=== PATIENT | male | born 1935 | race Caucasian/White ===

== ENCOUNTER 2019-10-04 11:22 | Inpatient (IN) | payer OTHER ==
[~2019-10-04] VITALS: Ht 172.7 cm; Wt 87.2 kg
[~2019-10-04 11:22] MED LIST: ASPI81CH43 PO; ATOR20TA50 PO; CARB25TA3 PO; FURO20TA3 PO; LOSA-39 PO; OMEP20TA PO; TERA1CAP33 PO
[2019-10-04 11:59] LABS: Basophils # (auto) 0 10 ^3/uL (0-0.2); Basophils % (auto) 0.7 % (0.0-2.0); Eosinophils # (auto) 0.1 10 ^3/uL (0-0.8); Eosinophils % (auto) 1.1 % (0.0-7.0); Hematocrit 44.8 % (41.0-53.0); Hemoglobin 14.9 g/dL (13.5-17.5); Lymphocytes # (auto) 0.9 10 ^3/uL (0.4-5.4); Lymphocytes % (auto) 14.5 % (10.0-50.0); Mean Corpuscular Hemoglobin 30.5 pg (28.0-32.0); Mean Corpuscular Hgb Conc. 33.3 g/dL (32.0-36.0); Mean Corpuscular Volume 91.8 fL (80.0-100.0); Monocytes # (auto) 0.5 10 ^3/uL (0-1.3); Monocytes % (auto) 8.5 % (0.0-12.0); Neutrophils # (auto) 4.6 10 ^3/uL (1.6-8.6); Neutrophils % (auto) 75.2 % (37.0-80.0); Nucleated Red Blood Cells % 0.1 %; Platelet Count (auto) 172 10^3/uL (140-450); Red Blood Cells 4.88 10^6/uL (4.5-5.90); Red Cell Distribution Width 14.5 % (11.8-14.3); White Blood Cell 6.1 10^3/uL (4.4-10.8)
[2019-10-04 12:13] LABS: Albumin 3.5 g/dL (3.4-5.0); Anion Gap 3 (5-15); Blood Alcohol < 3.0 mg/dL (0-5); Blood Urea Nitrogen 22 mg/dL (7-18); Calcium 8.7 mg/dL (8.5-10.1); Carbon Dioxide 28 mmol/L (21-32); Chloride 103 mmol/L (98-107); Glucose 136 mg/dL (74-106); INR 1.12 (0.9-1.15); Magnesium 2.4 mg/dL (1.6-2.6); Partial Thromboplastin Time 30.2 sec (23.0-31.2); Potassium 4.4 mmol/L (3.5-5.1); Sodium 134 mmol/L (136-145)
[2019-10-04 12:19] LABS: Alanine Aminotransferase 13 U/L (16-61); Alkaline Phosphatase 65 U/L (45-117); Aspartate Aminotransferase 15 U/L (15-37); BUN/Creatinine Ratio 13.2; GFR African American 51 mL/min; GFR Non-African American 42 mL/min; Total Protein 6.5 g/dL (6.4-8.2)
[2019-10-04] MEDS ORDERED: LORazepam 0.5 MG TAB PO PRN (14:15)
[2019-10-04] MEDS ORDERED: NITROGLYCERIN 0.4 MG SL TAB SL PRN (14:15)
[2019-10-04] MEDS: SODIUM CHLORIDE 0.9% 1,000 ML IV SCH (14:15)
[2019-10-04] MEDS ORDERED: MORPHINE SULF INJ 2 MG/ML SYRINGE 1ML IV PRN ×2 (14:15)
[2019-10-04] MEDS ORDERED: hydrALAZINE HCL 20 MG/ML VL IV PRN (14:15)
[2019-10-04] MEDS ORDERED: DOCUSATE CALCIUM 240 MG CAP PO PRN (14:15)
[2019-10-04] MEDS ORDERED: ACETAMINOPHEN 500 MG TAB PO PRN (14:15)
[2019-10-04 14:41] LABS: Urine Bacteria NONE SEEN /hpf (None Seen); Urine Blood Negative /uL (Negative); Urine Mucus FEW (None Seen); Urine Specific Gravity 1.011 (1.001-1.035); Urine WBC <1 /hpf (0 - 3)
[2019-10-04] MEDS ORDERED: ASPI-231 PO (15:24)
[2019-10-04] MEDS ORDERED: TERA2CAP45 PO (15:24)
[2019-10-04] MEDS ORDERED: CHOL100083 PO (15:24)
[2019-10-04 16:35] VITALS: BP 172/85
--- NOTE | 2019-10-04 16:35 | NUR ---
Telemetry admit from ER MITCH RAMIREZJOSE A admitted to Telemetry unit after SBAR received. Patient oriented to Elizabeth Ellis, primary RN, unit, room, bed, and unit policies regarding patient care and visiting hours. Patient now on continuous telemetry monitoring, tele box # 67 and telemetry reading on arrival to unit is sinus rhythm at 64 with PAC, PVC, and 1st degree heart block. Patient at room air, weighed by bedscale and encouraged to call if they need something, bed alarm on. All questions and concerns addressed, patient verbalized understanding.
[2019-10-04 17:00] VITALS: BP 172/85
[2019-10-04] MEDS ORDERED: CARB25TA75 PO (17:14)
[2019-10-04 17:34] VITALS: BP 150/81
[2019-10-04] MEDS ORDERED: DEXTROSE (50%) 50ML SYRG IV PRN (19:15)
--- NOTE | 2019-10-04 19:30 | NUR ---
Opening Shift Note Assumed care of patient, awake and alert. A&Ox4. Patient lying in bed. No S/S of distress/SOB or pain. Safety measures maintained by keeping the bed locked in lowest position, 2 side rails up, personal items and call light within reach. Instructed on POC and to call for assist PRN, will continue to monitor for changes Q1hr and PRN.
[2019-10-04 22:00] VITALS: BP 116/56
[2019-10-04] MEDS: InsuLIN REG 1unit/0.01ml Soln (100units/ml) SC SCH (22:00)
[2019-10-04] MEDS: ACCU-CHEK COMFORT CURVE STRIP VI SCH (22:03)
[2019-10-05 05:00] VITALS: BP 101/78
[2019-10-05] MEDS: InsuLIN REG 1unit/0.01ml Soln (100units/ml) SC SCH ×4 (06:17→21:31)
[2019-10-05] MEDS: ACCU-CHEK COMFORT CURVE STRIP VI SCH ×4 (06:17→21:28)
[2019-10-05] MEDS: SODIUM CHLORIDE 0.9% 1,000 ML IV SCH ×2 (06:49→23:39)
[2019-10-05 07:19] LABS: Basophils # (auto) 0 10 ^3/uL (0-0.2); Basophils % (auto) 0.5 % (0.0-2.0); Eosinophils # (auto) 0.1 10 ^3/uL (0-0.8); Eosinophils % (auto) 1.8 % (0.0-7.0); Hematocrit 44.9 % (41.0-53.0); Hemoglobin 14.9 g/dL (13.5-17.5); Lymphocytes # (auto) 1.2 10 ^3/uL (0.4-5.4); Lymphocytes % (auto) 19.8 % (10.0-50.0); Mean Corpuscular Hemoglobin 30.4 pg (28.0-32.0); Mean Corpuscular Hgb Conc. 33.1 g/dL (32.0-36.0); Mean Corpuscular Volume 91.9 fL (80.0-100.0); Monocytes # (auto) 0.6 10 ^3/uL (0-1.3); Monocytes % (auto) 9.6 % (0.0-12.0); Neutrophils % (auto) 68.3 % (37.0-80.0); Nucleated Red Blood Cells % 0.1 %; Platelet Count (auto) 168 10^3/uL (140-450); Red Blood Cells 4.89 10^6/uL (4.5-5.90); Red Cell Distribution Width 14.6 % (11.8-14.3); White Blood Cell 5.9 10^3/uL (4.4-10.8)
[2019-10-05 07:27] LABS: Albumin 3.4 g/dL (3.4-5.0); BUN/Creatinine Ratio 13.7; Bilirubin, Total 1.3 mg/dL (0.2-1.0); Calcium 8.5 mg/dL (8.5-10.1); Magnesium 2.2 mg/dL (1.6-2.6); Phosphorus 2.7 mg/dL (2.5-4.90); Total Protein 6.2 g/dL (6.4-8.2)
--- NOTE | 2019-10-05 07:30 | NUR ---
Opening Shift Note Assumed care of patient, awake and alert. No S/S of distress/SOB or pain. Instructed on POC and to call for assist PRN, will continue to monitor for changes Q1hr and PRN. Bed is locked and in lowest position. Call light within reach.
[2019-10-05 08:00] VITALS: BP 117/64
[2019-10-05 09:00] VITALS: BP 117/64
[2019-10-05] MEDS: PANTOPRAZOLE 40 MG/10 ML VIAL INJ IV SCH (09:46)
[2019-10-05] MEDS: ENOXAPARIN SOD 30 MG/0.3 ML SYRINGE SC SCH (09:47)
[2019-10-05 13:00] VITALS: BP 128/69
--- NOTE | 2019-10-05 13:37 | NUR ---
ss consult Per ss consult advanced directive information. Patient has been provided advanced directive by bedside nurse. Addendum: 10/05/19 at 1338 by Grace HUITRON Amended: Links added.
--- NOTE | 2019-10-05 14:59 | NUR ---
Contacted [facility] @ [phone] and informed about the transfer request for per Dr. Bajwa. Per Stephnaie, she informed me that I fax over latest clinicals and transfer order and they will work on transfer. She also informed me that [facility] is already working on securing the bed and might happen over this weekend as they dont have beds today. She has info to reach out to the floor to facilitate this transfer if this happens over the weekend. I faxed over clinicals for today along with the transfer order and scanned into [facility]. 10/04 @ 2.58pm Addendum: 10/05/19 at 1509 by MICHAEL HUITRON Stephanie is also aware that she can reachout to the optimization analyst CM/SW for assistance
--- NOTE | 2019-10-05 15:00 | NUR ---
SANDRA MORAN SWAB COLLECTED AND WALKED TO LAB. WILL AWAIT RESULTS.
[2019-10-05 17:00] VITALS: BP 155/83
--- NOTE | 2019-10-05 19:35 | NUR ---
Opening Shift Note Assumed care of patient, awake and alert. A&Ox4. Patient laying in bed. Patient has periods of confusion. No S/S of distress/SOB or pain. Safety measures maintained by keeping the bed locked in lowest position, 2 side rails up, personal items and call light within reach. Instructed on POC and to call for assist PRN, will continue to monitor for changes Q1hr and PRN.
--- NOTE | 2019-10-05 21:05 | NUR ---
In House COVID swab collected and walked to lab. Will await results.
[2019-10-05 21:34] VITALS: BP 142/76
[2019-10-06 05:00] VITALS: BP 134/63
[2019-10-06] MEDS: InsuLIN REG 1unit/0.01ml Soln (100units/ml) SC SCH ×4 (06:52→22:00)
[2019-10-06] MEDS: ACCU-CHEK COMFORT CURVE STRIP VI SCH ×4 (06:52→22:49)
--- NOTE | 2019-10-06 07:30 | NUR ---
Opening Shift Note Assumed care of patient, awake and alert. No S/S of distress/SOB or pain. Instructed on POC and to call for assist PRN, will continue to monitor for changes Q1hr and PRN. Bed is locked and in lowest position. Call light within reach. Sitter at bedside due to safety.
[2019-10-06 09:03] VITALS: BP 153/83
[2019-10-06] MEDS: ENOXAPARIN SOD 30 MG/0.3 ML SYRINGE SC SCH (09:59)
[2019-10-06] MEDS: PANTOPRAZOLE 40 MG/10 ML VIAL INJ IV SCH (09:59)
--- NOTE | 2019-10-06 12:13 | NUR ---
Contacted by [facility] loan review manager, Clarissa, and it has been arranged for pt to be picked up by [facility] at 6:45am for the pacemaker procedure at [facility] at 7:30am. Pt's stay is authorized until his transfer on Tuesday per Clarissa. Charge nurse also notified by Clarissa.
[2019-10-06] MEDS: CARBIDOPA W LEVODOPA 25/100mg TABLET PO SCH ×3 (12:16→21:50)
[2019-10-06 13:00] VITALS: BP 134/69
[2019-10-06 17:15] VITALS: BP 119/66
--- NOTE | 2019-10-06 19:30 | NUR ---
Opening Shift Note Assumed care of patient, awake and alert. A&Ox4. No S/S of distress/SOB or pain. Safety measures maintained by keeping the bed locked in lowest position, 2 side rails up, personal items and call light within reach. Bed alarm in place. Walker at bedside. Instructed on POC and to call for assist PRN, will continue to monitor for changes Q1hr and PRN.
--- NOTE | 2019-10-06 20:45 | NUR ---
MD Solomon at bedside.
[2019-10-06] MEDS: ATORVASTATIN 20 MG TAB PO SCH (21:50)
[2019-10-06 22:00] VITALS: BP 127/80
[2019-10-07] VITALS (7 sets, daily range): BP systolic 126–168; BP diastolic 68–84
[2019-10-07] MEDS: CARBIDOPA W LEVODOPA 25/100mg TABLET PO SCH ×4 (06:10→21:59)
[2019-10-07] MEDS: InsuLIN REG 1unit/0.01ml Soln (100units/ml) SC SCH ×4 (06:17→21:59)
[2019-10-07] MEDS: ACCU-CHEK COMFORT CURVE STRIP VI SCH ×4 (06:17→21:59)
[2019-10-07 06:19] LABS: Basophils # (auto) 0 10 ^3/uL (0-0.2); Basophils % (auto) 0.6 % (0.0-2.0); Eosinophils # (auto) 0.1 10 ^3/uL (0-0.8); Eosinophils % (auto) 1.9 % (0.0-7.0); Hematocrit 48.6 % (41.0-53.0); Hemoglobin 16.2 g/dL (13.5-17.5); Lymphocytes # (auto) 1.1 10 ^3/uL (0.4-5.4); Lymphocytes % (auto) 16.5 % (10.0-50.0); Mean Corpuscular Hemoglobin 31.5 pg (28.0-32.0); Mean Corpuscular Hgb Conc. 33.4 g/dL (32.0-36.0); Mean Corpuscular Volume 94.3 fL (80.0-100.0); Monocytes # (auto) 0.6 10 ^3/uL (0-1.3); Monocytes % (auto) 9.8 % (0.0-12.0); Neutrophils # (auto) 4.6 10 ^3/uL (1.6-8.6); Neutrophils % (auto) 71.2 % (37.0-80.0); Nucleated Red Blood Cells % 0.3 %; Platelet Count (auto) 143 10^3/uL (140-450); Red Blood Cells 5.15 10^6/uL (4.5-5.90); Red Cell Distribution Width 14.9 % (11.8-14.3); White Blood Cell 6.4 10^3/uL (4.4-10.8)
[2019-10-07 08:55] LABS: BUN/Creatinine Ratio 18.3; Calcium 8.4 mg/dL (8.5-10.1); Potassium 4.4 mmol/L (3.5-5.1)
[2019-10-07] MEDS: PANTOPRAZOLE 40 MG/10 ML VIAL INJ IV SCH (09:04)
[2019-10-07] MEDS ORDERED: ASPirin-EC 81 mg tab PO SCH (10:00)
--- NOTE | 2019-10-07 11:53 | NUR ---
EEG-ELECTROENCEPHALOGRAM COMPLETED ON 10/07/2019 @ 10:09.
--- NOTE | 2019-10-07 14:08 | NUR ---
Nutrition Assessment Notes Please refer to link for full assessment notes. Est Energy needs: 4027-3374 kcals (17-20 kcal/kgBW) Est Protein needs: 86-95 gms/day (1.0-1.1 gm/kgBW) Will continue to monitor and reassess prn. Addendum: 10/07/19 at [address] Amended: Links added. Addendum: 10/07/19 at [address] Recommendation: Consider a CCHO 60g diet
--- NOTE | 2019-10-07 19:30 | NUR ---
Opening Shift Note Assumed care of patient, awake and alert. No S/S of distress/SOB or pain. Bed alarm turned on and patient encouraged to call if he needs to get up. Instructed on POC and to call for assist PRN, will continue to monitor for changes Q1hr and PRN.
[2019-10-07] MEDS: ATORVASTATIN 20 MG TAB PO SCH (21:58)
[2019-10-08 05:00] VITALS: BP 158/79
[2019-10-08] MEDS: InsuLIN REG 1unit/0.01ml Soln (100units/ml) SC SCH (07:00)
[2019-10-08] MEDS: CARBIDOPA W LEVODOPA 25/100mg TABLET PO SCH (07:24)
[2019-10-08] MEDS: ACCU-CHEK COMFORT CURVE STRIP VI SCH (07:24)
--- NOTE | 2019-10-08 07:31 | NUR ---
Pt being trans to another hosp Order obtained for transfer of JOSE A MEYER II to [facility]. Report called/given to [place]. Report given to EMS transport team. Medication reconciliation form completed and copy given to patient. Transported via [facility] along with copied chart and imaging films/disk and all personal belongings. No distress noted on time of departure. Iv left in place.
[2019-10-08 08:55] VITALS: BP 87/55
[2019-10-08 10:10] LABS: Folate (Folic Acid) 15.38 ng/mL (5.38-24)
== END 2019-10-08 07:31 | disposition short-term general hospital (02) | DRG 308 ==
LOC: ER 11:22 → EDBD 11:22 → TELE 11:23 → TELE-WESTW 16:19
PROVIDERS: ATTEND Specialist
DX: I49.5 Sick sinus syndrome (principal); G93.41 Metabolic encephalopathy; E87.1 Hypo-osmolality and hyponatremia; I13.0 Hypertensive heart and chronic kidney disease with heart failure and stage 1 through stage 4 chronic kidney disease, or unspecified chronic kidney disease; E86.0 Dehydration; I50.9 Heart failure, unspecified; G20 Parkinson's disease; I25.10 Atherosclerotic heart disease of native coronary artery without angina pectoris; N18.9 Chronic kidney disease, unspecified; E11.22 Type 2 diabetes mellitus with diabetic chronic kidney disease; Z20.828 Contact with and (suspected) exposure to other viral communicable diseases; F17.200 Nicotine dependence, unspecified, uncomplicated; I65.21 Occlusion and stenosis of right carotid artery; K59.00 Constipation, unspecified; N40.0 Benign prostatic hyperplasia without lower urinary tract symptoms; W18.39XA Other fall on same level, initial encounter; Z95.1 Presence of aortocoronary bypass graft; Z79.82 Long term (current) use of aspirin; I25.2 Old myocardial infarction; Z79.899 Other long term (current) drug therapy; Z82.3 Family history of stroke; Z86.73 Personal history of transient ischemic attack (TIA), and cerebral infarction without residual deficits; Z95.0 Presence of cardiac pacemaker; Z79.84 Long term (current) use of oral hypoglycemic drugs; Y93.89 Activity, other specified; Y92.89 Other specified places as the place of occurrence of the external cause; Y99.8 Other external cause status; Z88.0 Allergy status to penicillin
CPT/HCPCS: 36415; 70450; 70551; 71045; 72170; 80048; 80053; 80061; 80320; 81001; 82607; 82746; 82962; 83036; 83735; 83880; 84100; 84443; 84484; 85025; 85610; 85730; 87426; 93005; 93306; 93886; 95819; 97163; C9113; G0378; J1815

== ENCOUNTER 2022-12-14 15:30 | Inpatient (IN) | payer OTHER ==
[~2022-12-14] VITALS: Ht 165.1 cm; Wt 93.6 kg
[~2022-12-14 15:30] MED LIST changes: +ASPI1TAB20 PO; +CARB-112 PO; +CARB-118 PO; -CARB25TA3 PO; +CHOL100083 PO; -LOSA-39 PO; +LOSA100T58 PO; +TERA2CAP45 PO
[2022-12-14 16:00] VITALS: PULSE 86; RESP 20; O2SAT 96
[2022-12-14] MEDS ORDERED: ALBUTEROL MEDNEB 2.5 mg/3ml NEB NEB ONE (17:00)
[2022-12-14] MEDS ORDERED: IPRATROPIUM BROM 0.5 MG/2.5ML INH SOL NEB ONE (17:00)
[2022-12-14] MEDS ORDERED: cefTRIAXone 1GM/50ML D5W 50 ML IV ONE (17:00)
[2022-12-14] MEDS ORDERED: VANCOMYCIN PER PHARMACY 0 MG IV SCH (17:00)
[2022-12-14] MEDS ORDERED: ONDANSETRON HCL 4 MG/2 ML VIAL IV ONE (17:00)
[2022-12-14 17:28] LABS: Base Excess -4.3 mmol/L (-2.0-2.0)
[2022-12-14 17:31] LABS: Basophils # (auto) 0 10 ^3/uL (0-0.2); Basophils % (auto) 0.1 % (0.0-2.0); Eosinophils # (auto) 0 10 ^3/uL (0-0.8); Eosinophils % (auto) 0.1 % (0.0-7.0); Hematocrit 41.6 % (41.0-53.0); Lymphocytes # (auto) 0.7 10 ^3/uL (0.4-5.4); Lymphocytes % (auto) 3.5 % (10.0-50.0); Mean Corpuscular Hemoglobin 28.8 pg (28.0-32.0); Mean Corpuscular Hgb Conc. 31.3 g/dL (32.0-36.0); Monocytes # (auto) 0.7 10 ^3/uL (0-1.3); Monocytes % (auto) 3.4 % (0.0-12.0); Neutrophils # (auto) 17.9 10 ^3/uL (1.6-8.6); Neutrophils % (auto) 92.9 % (37.0-80.0); Red Blood Cells 4.52 10^6/uL (4.5-5.90); Red Cell Distribution Width 18.2 % (11.8-14.3); White Blood Cell 19.3 10^3/uL (4.4-10.8)
[2022-12-14] MEDS ORDERED: VANCOMYCIN 1GM/250ML 250 ML IV ONE (18:00)
[2022-12-14 18:19] LABS: Albumin 2.7 g/dL (3.2-4.8); Alkaline Phosphatase 71 U/L (46-116); Anion Gap 56 (5-15); Aspartate Aminotransferase 11 U/L (13-40); BUN/Creatinine Ratio 23.3 (10.0-20.0); Bilirubin, Total 1.1 mg/dL (0.2-1.0); Blood Urea Nitrogen 21 mg/dL (9-23); Calcium 6.9 mg/dL (8.7-10.4); Carbon Dioxide 13 mmol/L (20-30); Chloride 78 mmol/L (98-107); Glucose 150 mg/dL (74-106); Lipase 27 U/L (12-53); Magnesium 2.4 mg/dL (1.6-2.6); Potassium 4.3 mmol/L (3.5-5.1); Sodium 147 mmol/L (136-145); Total Protein 5.1 g/dL (5.7-8.2)
[2022-12-14 18:33] LABS: Alanine Aminotransferase < 9 U/L (7-40)
[2022-12-14 19:02] LABS: INR 1.33 (0.9-1.15); Lactic Acid w/Reflex 2.9 mmol/L (0.4-2.0); Partial Thromboplastin Time 36.8 SEC (24.5-34.5); Prothrombin Time 13.7 sec (9.3-11.8)
[2022-12-14 20:40] VITALS: PULSE 91; RESP 23; O2SAT 99
[2022-12-14] MEDS ORDERED: NITROGLYCERIN 0.4 MG SL TAB SL PRN ×2 (21:45→22:00)
[2022-12-14] MEDS ORDERED: MORPHINE SULFATE INJ 2 MG/ml SYRG IV PRN ×2 (21:45→22:00)
[2022-12-14] MEDS ORDERED: ALBUMIN 5% 250 ML IV ONE ×2 (21:45→22:43)
[2022-12-14] MEDS ORDERED: DEXTROSE (50%) 50ML SYRG IV PRN ×2 (21:45→22:00)
[2022-12-14] MEDS ORDERED: ONDANSETRON HCL 4 MG/2 ML VIAL IV PRN ×2 (21:45→22:00)
[2022-12-14] MEDS ORDERED: ATORVASTATIN 20 MG TAB PO SCH (22:00)
[2022-12-14] MEDS ORDERED: CARBIDOPA W LEVODOPA 25/100mg TABLET PO SCH (22:00)
[2022-12-14] MEDS ORDERED: APIXABAN 2.5 MG TAB PO SCH ×2 (22:00→22:15)
[2022-12-15] MEDS ORDERED: ACCU-CHEK COMFORT CURVE STRIP VI SCH
[2022-12-15] MEDS ORDERED: InsuLIN REG 1unit/0.01ml Soln (100units/ml) SC SCH
[2022-12-15] MEDS: ACCU-CHEK COMFORT CURVE STRIP VI SCH ×5 (00:24→21:37)
[2022-12-15] MEDS: InsuLIN REG 1unit/0.01ml Soln (100units/ml) SC SCH ×5 (00:24→21:36)
[2022-12-15 03:32] LABS: Rapid Influenza A Negative (Negative); Rapid Influenza B Negative (Negative)
[2022-12-15 03:33] LABS: COVID19 ANTIGEN SOFIA FIA NEGATIVE (NEGATIVE)
[2022-12-15] MEDS ORDERED: VANCOMYCIN 1GM/250ML 250 ML IV SCH (04:00)
[2022-12-15] MEDS ORDERED: VANCOMYCIN 1GM/250ML 250 ML IV ONE (04:24)
[2022-12-15 06:12] LABS: Basophils # (auto) 0 10 ^3/uL (0-0.2); Basophils % (auto) 0.1 % (0.0-2.0); Eosinophils # (auto) 0 10 ^3/uL (0-0.8); Lymphocytes # (auto) 0.6 10 ^3/uL (0.4-5.4); Monocytes # (auto) 0.8 10 ^3/uL (0-1.3)
[2022-12-15 06:18] LABS: Hematocrit 38.8 % (41.0-53.0); Hemoglobin 12.2 g/dL (13.5-17.5); Mean Corpuscular Hemoglobin 28.7 pg (28.0-32.0); Mean Corpuscular Hgb Conc. 31.4 g/dL (32.0-36.0); Mean Corpuscular Volume 91.5 fL (80.0-100.0); Neutrophils # (auto) 19.4 10 ^3/uL (1.6-8.6); Neutrophils % (auto) 92.9 % (37.0-80.0); Red Blood Cells 4.24 10^6/uL (4.5-5.90); White Blood Cell 20.8 10^3/uL (4.4-10.8)
[2022-12-15 06:21] LABS: Albumin 3.2 g/dL (3.2-4.8); Alkaline Phosphatase 84 U/L (46-116); Anion Gap 9 (5-15); Aspartate Aminotransferase 20 U/L (13-40); BUN/Creatinine Ratio 17.4 (10.0-20.0); Bilirubin, Total 1.2 mg/dL (0.2-1.0); Blood Urea Nitrogen 21 mg/dL (9-23); Calcium 8.7 mg/dL (8.5-10.1); Carbon Dioxide 19 mmol/L (20-30); Chloride 99 mmol/L (98-107); Glucose 168 mg/dL (74-106); Potassium 5.3 mmol/L (3.5-5.1)
[2022-12-15 06:35] LABS: Alanine Aminotransferase < 9 U/L (7-40); Sodium 127 mmol/L (136-145)
[2022-12-15] MEDS: CARBIDOPA W LEVODOPA 25/100mg TABLET PO SCH ×4 (07:00→21:36)
[2022-12-15 08:00] VITALS: PULSE 85; RESP 30; O2SAT 93
[2022-12-15] MEDS ORDERED: cefTRIAXone 1GM/50ML D5W 50 ML IV SCH (09:00)
[2022-12-15] MEDS ORDERED: FUROSEMIDE 40 MG TAB PO SCH ×2 (10:00)
[2022-12-15 10:24] LABS: Urine Bacteria NONE SEEN /hpf (None Seen); Urine Blood 3+ /uL (Negative); Urine Clarity CLOUDY (Clear); Urine Color Red (Yellow); Urine Mucus FEW (None Seen); Urine Protein, UAD 3+ (Negative); Urine Specific Gravity 1.019 (1.001-1.035); Urine Urobilinogen Normal (Negative); Urine WBC 207 /hpf (0 - 3); Urine WBC Clumps PRESENT /hpf (None Seen); Urine pH 8.5 (5.0-8.0)
[2022-12-15] MEDS: cefTRIAXone 1GM/50ML D5W 50 ML IV SCH (10:41)
[2022-12-15] MEDS ORDERED: FUROSEMIDE 40 MG/4 ML VIAL IV ONE (10:45)
[2022-12-15] MEDS: ENOXAPARIN SOD 40 MG/0.4 ML SYRINGE SC SCH (10:57)
[2022-12-15] MEDS: VANCOMYCIN 1GM/250ML 250 ML IV SCH (15:31)
[2022-12-15] MEDS: TAMSULOSIN HYDROCHLORIDE 0.4 MG CAP PO SCH (17:02)
[2022-12-15] MEDS: FUROSEMIDE 40 MG/4 ML VIAL IV SCH (17:06)
[2022-12-15] MEDS ORDERED: TAMSULOSIN HYDROCHLORIDE 0.4 MG CAP PO SCH (18:00)
[2022-12-15 19:15] VITALS: PULSE 88; RESP 26; O2SAT 98
[2022-12-15] MEDS: ATORVASTATIN 20 MG TAB PO SCH (21:36)
[2022-12-16] MEDS: VANCOMYCIN 1GM/250ML 250 ML IV SCH (01:00)
[2022-12-16 04:55] LABS: Basophils # (auto) 0 10 ^3/uL (0-0.2); Basophils % (auto) 0.2 % (0.0-2.0); Eosinophils # (auto) 0 10 ^3/uL (0-0.8); Eosinophils % (auto) 0.1 % (0.0-7.0); Hematocrit 38.2 % (41.0-53.0); Hemoglobin 12.2 g/dL (13.5-17.5); Lymphocytes # (auto) 0.8 10 ^3/uL (0.4-5.4); Mean Corpuscular Hemoglobin 28.6 pg (28.0-32.0); Mean Corpuscular Hgb Conc. 31.9 g/dL (32.0-36.0); Mean Corpuscular Volume 89.4 fL (80.0-100.0); Monocytes # (auto) 0.7 10 ^3/uL (0-1.3); Monocytes % (auto) 5.4 % (0.0-12.0); Neutrophils # (auto) 12.1 10 ^3/uL (1.6-8.6); Neutrophils % (auto) 88.3 % (37.0-80.0); Red Blood Cells 4.28 10^6/uL (4.5-5.90); Red Cell Distribution Width 18.2 % (11.8-14.3); White Blood Cell 13.8 10^3/uL (4.4-10.8)
[2022-12-16 05:07] LABS: Chloride 101 mmol/L (98-107); Potassium 4.2 mmol/L (3.5-5.1); Sodium 130 mmol/L (136-145)
[2022-12-16 05:08] LABS: Anion Gap 8 (5-15); Carbon Dioxide 21 mmol/L (20-30)
[2022-12-16 05:09] LABS: Calcium 8.6 mg/dL (8.7-10.4)
[2022-12-16 05:13] LABS: BUN/Creatinine Ratio 19.8 (10.0-20.0); Blood Urea Nitrogen 23 mg/dL (9-23); Glucose 99 mg/dL (74-106)
[2022-12-16 05:14] LABS: Magnesium 2.1 mg/dL (1.6-2.6)
[2022-12-16] MEDS: CARBIDOPA W LEVODOPA 25/100mg TABLET PO SCH ×4 (06:00→22:00)
[2022-12-16] MEDS: InsuLIN REG 1unit/0.01ml Soln (100units/ml) SC SCH ×3 (06:00→18:00)
[2022-12-16] MEDS: FUROSEMIDE 40 MG/4 ML VIAL IV SCH ×2 (06:15→17:52)
[2022-12-16] MEDS: ACCU-CHEK COMFORT CURVE STRIP VI SCH ×3 (06:15→18:28)
[2022-12-16] MEDS: cefTRIAXone 1GM/50ML D5W 50 ML IV SCH (09:36)
[2022-12-16] MEDS: ENOXAPARIN SOD 40 MG/0.4 ML SYRINGE SC SCH (10:00)
[2022-12-16 10:48] VITALS: PULSE 80; RESP 22; O2SAT 95
[2022-12-16 13:00] VITALS: BP 124/87; PULSE 85; RESP 18; TEMP 98; O2SAT 100
[2022-12-16] MEDS: TAMSULOSIN HYDROCHLORIDE 0.4 MG CAP PO SCH (16:24)
[2022-12-16 17:00] VITALS: BP 100/63; PULSE 83; RESP 20; TEMP 98.3; O2SAT 93
[2022-12-16] MEDS ORDERED: VANCOMYCIN 500 MG in D5W 5% 100 ML IV ONE (17:00)
[2022-12-16 20:00] VITALS: PULSE 80; RESP 16; RESP 18; O2SAT 97
[2022-12-16] MEDS: ATORVASTATIN 20 MG TAB PO SCH (22:00)
[2022-12-16] MEDS ORDERED: ENOXAPARIN SOD 100 MG/1 ML SYRINGE SC SCH (22:00)
[2022-12-16 22:02] VITALS: BP 115/65; PULSE 79; RESP 19; TEMP 98.2; O2SAT 99
[2022-12-17] VITALS (8 sets, daily range): BP systolic 105–123; BP diastolic 51–80; PULSE 69–99; RESP 17–20; TEMP 98.2–98.7; O2SAT 95–98
[2022-12-17] MEDS: CARBIDOPA W LEVODOPA 25/100mg TABLET PO SCH ×4 (06:00→21:07)
[2022-12-17] MEDS: InsuLIN REG 1unit/0.01ml Soln (100units/ml) SC SCH ×4 (06:00→18:00)
[2022-12-17] MEDS: FUROSEMIDE 40 MG/4 ML VIAL IV SCH (06:28)
[2022-12-17] MEDS: ACCU-CHEK COMFORT CURVE STRIP VI SCH ×4 (06:28→18:10)
[2022-12-17 06:36] LABS: Basophils # (auto) 0 10 ^3/uL (0-0.2); Basophils % (auto) 0.5 % (0.0-2.0); Eosinophils # (auto) 0.1 10 ^3/uL (0-0.8); Eosinophils % (auto) 0.6 % (0.0-7.0); Hematocrit 38.6 % (41.0-53.0); Hemoglobin 12.4 g/dL (13.5-17.5); Mean Corpuscular Hemoglobin 28.6 pg (28.0-32.0); Mean Corpuscular Volume 89.3 fL (80.0-100.0); Monocytes # (auto) 0.6 10 ^3/uL (0-1.3); Monocytes % (auto) 7.2 % (0.0-12.0); Neutrophils # (auto) 7.2 10 ^3/uL (1.6-8.6); Neutrophils % (auto) 80.7 % (37.0-80.0); Nucleated Red Blood Cells % 0.1 %; Red Blood Cells 4.33 10^6/uL (4.5-5.90); Red Cell Distribution Width 17.9 % (11.8-14.3)
[2022-12-17 06:51] LABS: Alkaline Phosphatase 75 U/L (46-116); Anion Gap 8 (5-15); Aspartate Aminotransferase 18 U/L (13-40); BUN/Creatinine Ratio 25.9 (10.0-20.0); Bilirubin, Total 0.9 mg/dL (0.2-1.0); Blood Urea Nitrogen 30 mg/dL (9-23); Calcium 8.7 mg/dL (8.7-10.4); Carbon Dioxide 25 mmol/L (20-30); Chloride 102 mmol/L (98-107); Glucose 76 mg/dL (74-106); Magnesium 2.1 mg/dL (1.6-2.6); Potassium 3.7 mmol/L (3.5-5.1); Sodium 135 mmol/L (136-145); Total Protein 5.7 g/dL (5.7-8.2)
[2022-12-17 06:52] LABS: Alanine Aminotransferase < 9 U/L (7-40)
[2022-12-17] MEDS: cefTRIAXone 1GM/50ML D5W 50 ML IV SCH (08:27)
[2022-12-17] MEDS: ENOXAPARIN SOD 120 MG/0.8 ML SYRINGE SC SCH ×2 (09:58→21:05)
[2022-12-17] MEDS: TAMSULOSIN HYDROCHLORIDE 0.4 MG CAP PO SCH (18:00)
[2022-12-17] MEDS: ATORVASTATIN 20 MG TAB PO SCH (21:06)
[2022-12-18] VITALS (7 sets, daily range): BP systolic 103–130; BP diastolic 69–82; PULSE 80–82; RESP 14–20; TEMP 97.2–97.8; O2SAT 98–100
[2022-12-18] MEDS: ACCU-CHEK COMFORT CURVE STRIP VI SCH ×5 (00:13→23:34)
[2022-12-18] MEDS: InsuLIN REG 1unit/0.01ml Soln (100units/ml) SC SCH ×5 (00:18→23:34)
[2022-12-18] MEDS: CARBIDOPA W LEVODOPA 25/100mg TABLET PO SCH ×4 (05:17→21:00)
[2022-12-18 06:06] LABS: PSA Free 0.2 ng/mL; Prostate Specific Antigen 0.7 ng/mL (0.0-4.0)
[2022-12-18 06:08] LABS: Basophils # (auto) 0.1 10 ^3/uL (0-0.2); Basophils % (auto) 0.5 % (0.0-2.0); Eosinophils # (auto) 0.1 10 ^3/uL (0-0.8); Eosinophils % (auto) 0.8 % (0.0-7.0); Hematocrit 40.7 % (41.0-53.0); Hemoglobin 12.4 g/dL (13.5-17.5); Lymphocytes % (auto) 10.6 % (10.0-50.0); Mean Corpuscular Hemoglobin 28.4 pg (28.0-32.0); Mean Corpuscular Hgb Conc. 30.5 g/dL (32.0-36.0); Mean Corpuscular Volume 93.4 fL (80.0-100.0); Monocytes # (auto) 0.8 10 ^3/uL (0-1.3); Monocytes % (auto) 8.2 % (0.0-12.0); Neutrophils # (auto) 7.9 10 ^3/uL (1.6-8.6); Neutrophils % (auto) 79.9 % (37.0-80.0); Nucleated Red Blood Cells % 0.1 %; Red Blood Cells 4.36 10^6/uL (4.5-5.90); White Blood Cell 9.8 10^3/uL (4.4-10.8)
[2022-12-18 06:42] LABS: Anion Gap 9 (5-15); Carbon Dioxide 24 mmol/L (20-30); Chloride 103 mmol/L (98-107); Potassium 3.7 mmol/L (3.5-5.1); Sodium 136 mmol/L (136-145)
[2022-12-18 06:43] LABS: Calcium 8.7 mg/dL (8.7-10.4)
[2022-12-18 06:48] LABS: BUN/Creatinine Ratio 22.7 (10.0-20.0); Blood Urea Nitrogen 29 mg/dL (9-23); Glucose 128 mg/dL (74-106)
[2022-12-18] MEDS ORDERED: VANCOMYCIN 500 MG in D5W 5% 100 ML IV ONE (08:45)
[2022-12-18] MEDS: cefTRIAXone 1GM/50ML D5W 50 ML IV SCH (09:02)
[2022-12-18] MEDS: ENOXAPARIN SOD 120 MG/0.8 ML SYRINGE SC SCH ×2 (09:03→20:59)
[2022-12-18] MEDS: TAMSULOSIN HYDROCHLORIDE 0.4 MG CAP PO SCH (17:39)
[2022-12-18] MEDS: ATORVASTATIN 20 MG TAB PO SCH (20:59)
[2022-12-19] VITALS (7 sets, daily range): BP systolic 110–128; BP diastolic 67–80; PULSE 79–82; RESP 18–24; TEMP 97.3–97.8; O2SAT 95–100
[2022-12-19] MEDS: InsuLIN REG 1unit/0.01ml Soln (100units/ml) SC SCH ×4 (06:00→23:00)
[2022-12-19] MEDS: ACCU-CHEK COMFORT CURVE STRIP VI SCH ×4 (06:10→22:57)
[2022-12-19] MEDS: CARBIDOPA W LEVODOPA 25/100mg TABLET PO SCH ×4 (06:10→21:37)
[2022-12-19] MEDS: ENOXAPARIN SOD 120 MG/0.8 ML SYRINGE SC SCH ×2 (08:47→21:37)
[2022-12-19] MEDS: cefTRIAXone 1GM/50ML D5W 50 ML IV SCH (08:47)
[2022-12-19] MEDS: TAMSULOSIN HYDROCHLORIDE 0.4 MG CAP PO SCH (18:03)
[2022-12-19] MEDS: ATORVASTATIN 20 MG TAB PO SCH (21:37)
[2022-12-20] VITALS (7 sets, daily range): BP systolic 99–116; BP diastolic 66–80; PULSE 80; RESP 18; TEMP 96.7–97.9; O2SAT 97–100
[2022-12-20] MEDS: InsuLIN REG 1unit/0.01ml Soln (100units/ml) SC SCH ×3 (06:00→18:00)
[2022-12-20] MEDS: CARBIDOPA W LEVODOPA 25/100mg TABLET PO SCH ×4 (06:16→21:29)
[2022-12-20] MEDS: ACCU-CHEK COMFORT CURVE STRIP VI SCH ×3 (06:16→18:45)
[2022-12-20] MEDS: ENOXAPARIN SOD 120 MG/0.8 ML SYRINGE SC SCH (10:02)
[2022-12-20] MEDS: cefTRIAXone 1GM/50ML D5W 50 ML IV SCH (10:03)
[2022-12-20] MEDS ORDERED: VANCOMYCIN 1GM/250ML 250 ML IV ONE (11:00)
[2022-12-20] MEDS: FUROSEMIDE 20 MG/2 ML VIAL IV SCH (13:11)
[2022-12-20] MEDS: TAMSULOSIN HYDROCHLORIDE 0.4 MG CAP PO SCH (18:44)
[2022-12-20] MEDS: ATORVASTATIN 20 MG TAB PO SCH (21:29)
[2022-12-20] MEDS: ENOXAPARIN SOD 100 MG/1 ML SYRINGE SC SCH (21:29)
[2022-12-21] VITALS (7 sets, daily range): BP systolic 91–119; BP diastolic 41–74; PULSE 79–80; RESP 17–22; TEMP 97.5–98.9; O2SAT 90–100
[2022-12-21] MEDS: ACCU-CHEK COMFORT CURVE STRIP VI SCH ×4 (00:26→18:03)
[2022-12-21] MEDS: InsuLIN REG 1unit/0.01ml Soln (100units/ml) SC SCH ×4 (00:36→18:00)
[2022-12-21 05:25] LABS: Chloride 101 mmol/L (98-107); Potassium 3.6 mmol/L (3.5-5.1); Sodium 135 mmol/L (136-145)
[2022-12-21 05:26] LABS: Anion Gap 6 (5-15); Calcium 8.4 mg/dL (8.5-10.1); Carbon Dioxide 28 mmol/L (20-30)
[2022-12-21 05:31] LABS: BUN/Creatinine Ratio 20.2 (10.0-20.0); Blood Urea Nitrogen 19 mg/dL (9-23); Glucose 97 mg/dL (74-106)
[2022-12-21] MEDS: CARBIDOPA W LEVODOPA 25/100mg TABLET PO SCH ×4 (05:58→21:56)
[2022-12-21] MEDS: FUROSEMIDE 20 MG/2 ML VIAL IV SCH (10:00)
[2022-12-21] MEDS: cefTRIAXone 1GM/50ML D5W 50 ML IV SCH (10:00)
[2022-12-21] MEDS: ENOXAPARIN SOD 100 MG/1 ML SYRINGE SC SCH ×2 (10:00→21:56)
[2022-12-21] MEDS ORDERED: VANCOMYCIN 1GM/250ML 250 ML IV SCH (12:00)
[2022-12-21] MEDS ORDERED: LIDOCAINE VISCOUS 2% 15ML UD PO ONE (13:15)
[2022-12-21] MEDS ORDERED: MIDAZOLAM HCL 2MG/2ML 2ml VIAL (1mg/ml) IV ONE (13:15)
[2022-12-21] MEDS ORDERED: NALOXONE HCL 0.4 MG/ML VIAL ONE (13:15)
[2022-12-21] MEDS ORDERED: fentaNYL CITRATE 100 MCG/2 ML VL IV ONE (13:15)
[2022-12-21] MEDS ORDERED: FLUMAZENIL 0.1 MG/ML INJ 10ML MDV IV ONE (13:15)
[2022-12-21] MEDS: TAMSULOSIN HYDROCHLORIDE 0.4 MG CAP PO SCH (18:03)
[2022-12-21] MEDS: ATORVASTATIN 20 MG TAB PO SCH (21:56)
[2022-12-22] MEDS: ACCU-CHEK COMFORT CURVE STRIP VI SCH ×4 (00:10→17:44)
[2022-12-22] MEDS: InsuLIN REG 1unit/0.01ml Soln (100units/ml) SC SCH ×4 (00:19→17:44)
[2022-12-22 05:48] VITALS: BP 107/61; PULSE 80; RESP 20; TEMP 97.8; O2SAT 100
[2022-12-22] MEDS: CARBIDOPA W LEVODOPA 25/100mg TABLET PO SCH ×3 (06:16→17:44)
[2022-12-22 08:00] VITALS: BP 109/77; PULSE 80; PULSE 86; RESP 18; RESP 24; TEMP 97.6; O2SAT 97
[2022-12-22] MEDS: cefTRIAXone 1GM/50ML D5W 50 ML IV SCH (09:14)
[2022-12-22] MEDS: ENOXAPARIN SOD 100 MG/1 ML SYRINGE SC SCH (09:14)
[2022-12-22] MEDS: FUROSEMIDE 20 MG/2 ML VIAL IV SCH (09:15)
[2022-12-22] MEDS ORDERED: BACDST PO (11:14)
[2022-12-22] MEDS ORDERED: CLIN300C70 PO (11:14)
[2022-12-22 12:00] VITALS: BP 95/64; PULSE 80; RESP 22; TEMP 97.7; O2SAT 95
[2022-12-22] MEDS ORDERED: SULFAMETHOX W/TRIMETH(800/160MG) DS TAB PO ONE (12:00)
[2022-12-22 16:00] VITALS: BP 96/67; PULSE 80; RESP 22; TEMP 98.1; O2SAT 96
[2022-12-22] MEDS: TAMSULOSIN HYDROCHLORIDE 0.4 MG CAP PO SCH (17:44)
[2022-12-22] MEDS ORDERED: SULFAMETHOX W/TRIMETH(800/160MG) DS TAB PO SCH (22:00)
== END 2022-12-22 18:51 | disposition home health service (06) | DRG 871 ==
LOC: EDBD 15:30 → ER 15:30 → TELE 21:54 → TELE-EAST 12-16 10:48
PROVIDERS: ADMIT Nurse Practitioner; ATTEND Internal Medicine Geriatric Medicine
PROC: B24BZZ4 Ultrasonography of Heart with Aorta, Transesophageal (ICD-10-PCS; principal; 2022-12-21)
DX: A41.9 Sepsis, unspecified organism (principal); E43 Unspecified severe protein-calorie malnutrition; G93.41 Metabolic encephalopathy; J18.9 Pneumonia, unspecified organism; I50.43 Acute on chronic combined systolic (congestive) and diastolic (congestive) heart failure; I21.4 Non-ST elevation (NSTEMI) myocardial infarction; E87.20 Acidosis, unspecified; D68.9 Coagulation defect, unspecified; N39.0 Urinary tract infection, site not specified; E87.1 Hypo-osmolality and hyponatremia; I13.0 Hypertensive heart and chronic kidney disease with heart failure and stage 1 through stage 4 chronic kidney disease, or unspecified chronic kidney disease; I08.1 Rheumatic disorders of both mitral and tricuspid valves; R65.20 Severe sepsis without septic shock; E11.22 Type 2 diabetes mellitus with diabetic chronic kidney disease; G20.A1 Parkinson's disease without dyskinesia, without mention of fluctuations; I48.91 Unspecified atrial fibrillation; N18.30 Chronic kidney disease, stage 3 unspecified; E66.9 Obesity, unspecified; N40.0 Benign prostatic hyperplasia without lower urinary tract symptoms; N47.2 Paraphimosis; Z20.822 Contact with and (suspected) exposure to COVID-19; R32 Unspecified urinary incontinence; E87.5 Hyperkalemia; R31.0 Gross hematuria; I25.10 Atherosclerotic heart disease of native coronary artery without angina pectoris; Z95.1 Presence of aortocoronary bypass graft; Z88.0 Allergy status to penicillin; Z82.3 Family history of stroke; Z90.49 Acquired absence of other specified parts of digestive tract; Z79.84 Long term (current) use of oral hypoglycemic drugs; Z87.440 Personal history of urinary (tract) infections; Z79.01 Long term (current) use of anticoagulants; Z86.14 Personal history of Methicillin resistant Staphylococcus aureus infection; Z95.0 Presence of cardiac pacemaker
CPT/HCPCS: 36415; 36600; 70450; 71045; 71250; 74176; 80048; 80053; 80202; 81001; 82553; 82805; 82962; 83605; 83690; 83735; 83880; 84154; 84484; 85025; 85610; 85730; 86850; 86900; 86901; 87040; 87077; 87086; 87088; 87186; 87426; 87804; 92610; 93005; 93306; 93312; 94640; 97110; 97163; 97530; 99152; 99291; G0378; J0696; J1815; J2250; J2405; J7060

== ENCOUNTER 2022-12-26 12:20 | Inpatient (IN) | payer OTHER ==
[~2022-12-26] VITALS: Ht 170.2 cm; Wt 98.3 kg
[~2022-12-26 12:20] MED LIST changes: -ASPI1TAB20 PO; +BACDST PO; -CARB-112 PO; +CLIN300C70 PO; -TERA2CAP45 PO
[2022-12-26] MEDS ORDERED: LIDOCAINE 2% JELLY 11ml (GLYDO) UR ONE (13:00)
[2022-12-26 13:20] VITALS: PULSE 82; RESP 22; O2SAT 96
[2022-12-26 13:29] LABS: Basophils # (auto) 0 10 ^3/uL (0-0.2); Basophils % (auto) 0.5 % (0.0-2.0); Eosinophils # (auto) 0.1 10 ^3/uL (0-0.8); Eosinophils % (auto) 0.9 % (0.0-7.0); Hematocrit 36.8 % (41.0-53.0); Hemoglobin 11.8 g/dL (13.5-17.5); Lymphocytes # (auto) 0.8 10 ^3/uL (0.4-5.4); Lymphocytes % (auto) 9.7 % (10.0-50.0); Mean Corpuscular Hemoglobin 28.7 pg (28.0-32.0); Mean Corpuscular Hgb Conc. 32.1 g/dL (32.0-36.0); Mean Corpuscular Volume 89.2 fL (80.0-100.0); Monocytes # (auto) 0.5 10 ^3/uL (0-1.3); Monocytes % (auto) 6.6 % (0.0-12.0); Neutrophils # (auto) 6.7 10 ^3/uL (1.6-8.6); Neutrophils % (auto) 82.3 % (37.0-80.0); Nucleated Red Blood Cells % 0.1 %; Red Blood Cells 4.12 10^6/uL (4.5-5.90); Red Cell Distribution Width 18.8 % (11.8-14.3); White Blood Cell 8.1 10^3/uL (4.4-10.8)
[2022-12-26 13:49] LABS: Albumin 3.4 g/dL (3.2-4.8); Alkaline Phosphatase 67 U/L (46-116); Anion Gap 4 (5-15); Aspartate Aminotransferase 15 U/L (13-40); Bilirubin, Total 0.7 mg/dL (0.2-1.0); Blood Urea Nitrogen 18 mg/dL (9-23); Calcium 8.7 mg/dL (8.5-10.1); Carbon Dioxide 29 mmol/L (20-30); Chloride 95 mmol/L (98-107); Glucose 119 mg/dL (74-106); Potassium 4.9 mmol/L (3.5-5.1); Total Protein 6.4 g/dL (5.7-8.2)
[2022-12-26 13:53] LABS: Alanine Aminotransferase < 9 U/L (7-40); Sodium 128 mmol/L (136-145)
[2022-12-26 14:14] LABS: Lactic Acid w/Reflex 2.2 mmol/L (0.4-2.0)
[2022-12-26 14:31] LABS: Urine Blood 3+ /uL (Negative); Urine Clarity CLOUDY (Clear); Urine Color Brown (Yellow); Urine Protein, UAD 2+ (Negative); Urine Urobilinogen Normal (Negative)
[2022-12-26 14:38] LABS: Urine Bacteria NONE SEEN /hpf (None Seen); Urine WBC 740 /hpf (0 - 3)
[2022-12-26] MEDS ORDERED: SODIUM CHLORIDE 0.9% 500 ML IV ONE ×2 (15:15→16:30)
[2022-12-26] MEDS ORDERED: MEROPENEM 1GM IVPB 100 ML IV ONE (16:45)
[2022-12-26] MEDS ORDERED: MORPHINE SULFATE INJ 2 MG/ml SYRG IV PRN (16:45)
[2022-12-26] MEDS ORDERED: ONDANSETRON HCL 4 MG/2 ML VIAL IV PRN (16:45)
[2022-12-26] MEDS ORDERED: SODIUM CHLORIDE 0.9% 1,000 ML IV ONE (16:45)
[2022-12-26] MEDS ORDERED: NITROGLYCERIN 0.4 MG SL TAB SL PRN (16:45)
[2022-12-26] MEDS ORDERED: VANCOMYCIN PER PHARMACY 0 MG IV SCH (16:45)
[2022-12-26] MEDS ORDERED: VANCOMYCIN 1GM/250ML 250 ML IV ONE (17:30)
[2022-12-26 21:15] VITALS: PULSE 79; RESP 22; O2SAT 93
[2022-12-26] MEDS ORDERED: MEROPENEM 1GM IVPB 100 ML IV SCH (22:00)
[2022-12-26] MEDS: CARBIDOPA W LEVODOPA 25/100mg TABLET PO SCH (22:19)
[2022-12-27] MEDS ORDERED: IPRATROPIUM BROM 0.5 MG/2.5ML INH SOL NEB PRN (02:30)
[2022-12-27] MEDS ORDERED: ALBUTEROL MEDNEB 2.5 mg/3ml NEB NEB PRN (02:30)
[2022-12-27 03:23] VITALS: BP 100/61; PULSE 80; RESP 19; O2SAT 99
[2022-12-27 05:23] LABS: Basophils # (auto) 0 10 ^3/uL (0-0.2); Basophils % (auto) 0.5 % (0.0-2.0); Eosinophils # (auto) 0.1 10 ^3/uL (0-0.8); Eosinophils % (auto) 0.8 % (0.0-7.0); Hematocrit 37.3 % (41.0-53.0); Hemoglobin 11.8 g/dL (13.5-17.5); Lymphocytes # (auto) 1.1 10 ^3/uL (0.4-5.4); Lymphocytes % (auto) 13.1 % (10.0-50.0); Mean Corpuscular Hemoglobin 29.1 pg (28.0-32.0); Mean Corpuscular Hgb Conc. 31.7 g/dL (32.0-36.0); Mean Corpuscular Volume 91.6 fL (80.0-100.0); Monocytes # (auto) 0.6 10 ^3/uL (0-1.3); Monocytes % (auto) 7.1 % (0.0-12.0); Neutrophils # (auto) 6.5 10 ^3/uL (1.6-8.6); Neutrophils % (auto) 78.5 % (37.0-80.0); Nucleated Red Blood Cells % 0.1 %; Red Blood Cells 4.07 10^6/uL (4.5-5.90); Red Cell Distribution Width 19.1 % (11.8-14.3); White Blood Cell 8.3 10^3/uL (4.4-10.8)
[2022-12-27 05:42] LABS: Albumin 3.1 g/dL (3.2-4.8); Alkaline Phosphatase 68 U/L (46-116); Anion Gap 9 (5-15); Aspartate Aminotransferase 14 U/L (13-40); BUN/Creatinine Ratio 10.5 (10.0-20.0); Bilirubin, Total 0.9 mg/dL (0.2-1.0); Blood Urea Nitrogen 12 mg/dL (9-23); Calcium 8.2 mg/dL (8.7-10.4); Carbon Dioxide 22 mmol/L (20-30); Chloride 96 mmol/L (98-107); Glucose 100 mg/dL (74-106); Magnesium 2.2 mg/dL (1.6-2.6); Potassium 4.6 mmol/L (3.5-5.1); Sodium 127 mmol/L (136-145); Total Protein 6.1 g/dL (5.7-8.2)
[2022-12-27 06:15] LABS: Alanine Aminotransferase < 9 U/L (7-40)
[2022-12-27] MEDS: CARBIDOPA W LEVODOPA 25/100mg TABLET PO SCH ×3 (06:24→22:31)
[2022-12-27] MEDS ORDERED: DEXTROSE (50%) 50ML SYRG IV PRN (07:15)
[2022-12-27] MEDS ORDERED: SODIUM CHLORIDE 0.9% 1,000 ML IV SCH (08:30)
[2022-12-27 08:49] VITALS: PULSE 80; RESP 23; O2SAT 98
[2022-12-27] MEDS: ACETAMINOPHEN 325 MG TAB PO PRN (09:56)
[2022-12-27] MEDS ORDERED: FUROSEMIDE 40 MG/4 ML VIAL IV ONE (10:45)
[2022-12-27 11:27] LABS: INR 1.29 (0.9-1.15); Prothrombin Time 13.3 sec (9.3-11.8)
[2022-12-27] MEDS: InsuLIN REG 1unit/0.01ml Soln (100units/ml) SC SCH ×2 (12:00→18:00)
[2022-12-27] MEDS: ACCU-CHEK COMFORT CURVE STRIP VI SCH ×2 (12:01→18:03)
[2022-12-27] MEDS: MEROPENEM 1GM IVPB 100 ML IV SCH ×2 (13:46→22:32)
[2022-12-27 17:35] VITALS: BP 132/87; PULSE 51; PULSE 80; RESP 18; RESP 20; TEMP 98.3; O2SAT 95; O2SAT 98
[2022-12-27] MEDS: VANCOMYCIN 1GM/250ML 250 ML IV SCH (19:22)
[2022-12-27 20:00] VITALS: BP 90/64; PULSE 80; PULSE 81; RESP 22; TEMP 97.6; O2SAT 93
[2022-12-27 22:00] VITALS: BP 90/64; PULSE 80; RESP 22; TEMP 97; O2SAT 93
[2022-12-28] VITALS (9 sets, daily range): BP systolic 90–143; BP diastolic 50–71; PULSE 74–88; RESP 18–22; TEMP 97–98.6; O2SAT 96–100
[2022-12-28] MEDS: ACCU-CHEK COMFORT CURVE STRIP VI SCH ×4 (04:49→18:04)
[2022-12-28] MEDS: InsuLIN REG 1unit/0.01ml Soln (100units/ml) SC SCH ×4 (06:00→18:17)
[2022-12-28] MEDS: CARBIDOPA W LEVODOPA 25/100mg TABLET PO SCH ×3 (06:59→21:22)
[2022-12-28] MEDS: MEROPENEM 1GM IVPB 100 ML IV SCH ×3 (07:06→21:18)
[2022-12-28 09:22] LABS: Basophils # (auto) 0.1 10 ^3/uL (0-0.2); Eosinophils # (auto) 0.1 10 ^3/uL (0-0.8); Eosinophils % (auto) 1.8 % (0.0-7.0); Hematocrit 36.1 % (41.0-53.0); Hemoglobin 11.5 g/dL (13.5-17.5); Lymphocytes % (auto) 13.1 % (10.0-50.0); Mean Corpuscular Hemoglobin 28.6 pg (28.0-32.0); Mean Corpuscular Hgb Conc. 31.8 g/dL (32.0-36.0); Monocytes # (auto) 0.7 10 ^3/uL (0-1.3); Monocytes % (auto) 8.6 % (0.0-12.0); Neutrophils # (auto) 5.7 10 ^3/uL (1.6-8.6); Neutrophils % (auto) 75.5 % (37.0-80.0); Nucleated Red Blood Cells % 0.1 %; Red Blood Cells 4.02 10^6/uL (4.5-5.90); Red Cell Distribution Width 19.1 % (11.8-14.3); White Blood Cell 7.6 10^3/uL (4.4-10.8)
[2022-12-28 09:36] LABS: Anion Gap 4 (5-15); Carbon Dioxide 26 mmol/L (20-30); Chloride 97 mmol/L (98-107); Potassium 4.2 mmol/L (3.5-5.1); Sodium 127 mmol/L (136-145)
[2022-12-28 09:37] LABS: Calcium 8.4 mg/dL (8.5-10.1)
[2022-12-28 09:42] LABS: BUN/Creatinine Ratio 13.4 (10.0-20.0); Blood Urea Nitrogen 16 mg/dL (9-23); Glucose 88 mg/dL (74-106)
[2022-12-28] MEDS: VANCOMYCIN 1GM/250ML 250 ML IV SCH (18:04)
[2022-12-28] MEDS: MUPIROCIN 2% OINT 15gm or 22gm FOR MRSA NARES EACHNOSTRI SCH (21:23)
[2022-12-29] VITALS (10 sets, daily range): BP systolic 101–144; BP diastolic 48–73; PULSE 71–81; RESP 18–22; TEMP 97.8–98.7; O2SAT 91–100
[2022-12-29] MEDS: ACCU-CHEK COMFORT CURVE STRIP VI SCH ×4 (01:33→17:33)
[2022-12-29] MEDS: InsuLIN REG 1unit/0.01ml Soln (100units/ml) SC SCH ×4 (06:00→17:59)
[2022-12-29] MEDS: MEROPENEM 1GM IVPB 100 ML IV SCH ×3 (06:14→21:30)
[2022-12-29] MEDS: CARBIDOPA W LEVODOPA 25/100mg TABLET PO SCH ×3 (06:14→21:30)
[2022-12-29 09:04] LABS: Chloride 96 mmol/L (98-107); Potassium 4.6 mmol/L (3.5-5.1); Sodium 126 mmol/L (136-145)
[2022-12-29 09:05] LABS: Anion Gap 4 (5-15); Carbon Dioxide 26 mmol/L (20-30)
[2022-12-29 09:06] LABS: Calcium 8.1 mg/dL (8.7-10.4)
[2022-12-29 09:11] LABS: Glucose 105 mg/dL (74-106)
[2022-12-29 09:23] LABS: BUN/Creatinine Ratio 11.7 (10.0-20.0); Blood Urea Nitrogen 14 mg/dL (9-23)
[2022-12-29] MEDS: MUPIROCIN 2% OINT 15gm or 22gm FOR MRSA NARES EACHNOSTRI SCH ×2 (10:00→21:31)
[2022-12-29] MEDS: ACETAMINOPHEN 325 MG TAB PO PRN (16:09)
[2022-12-29] MEDS: VANCOMYCIN 1GM/250ML 250 ML IV SCH (17:32)
[2022-12-30] VITALS (9 sets, daily range): BP systolic 100–107; BP diastolic 63–73; PULSE 46–83; RESP 18–22; TEMP 97.9–98.3; O2SAT 2–100
[2022-12-30] MEDS: ACCU-CHEK COMFORT CURVE STRIP VI SCH ×4 (00:53→17:30)
[2022-12-30] MEDS: InsuLIN REG 1unit/0.01ml Soln (100units/ml) SC SCH ×4 (01:06→17:38)
[2022-12-30] MEDS: MEROPENEM 1GM IVPB 100 ML IV SCH ×2 (04:32→12:34)
[2022-12-30] MEDS: CARBIDOPA W LEVODOPA 25/100mg TABLET PO SCH ×3 (05:13→20:45)
[2022-12-30] MEDS: MUPIROCIN 2% OINT 15gm or 22gm FOR MRSA NARES EACHNOSTRI SCH ×2 (10:05→20:45)
[2022-12-30] MEDS: VANCOMYCIN 1GM/250ML 250 ML IV SCH (17:31)
[2022-12-30] MEDS: ACETAMINOPHEN 325 MG TAB PO PRN (20:42)
[2022-12-31] VITALS (8 sets, daily range): BP systolic 101–105; BP diastolic 56–77; PULSE 64–81; RESP 18–20; TEMP 97.6–98.9; O2SAT 2–100
[2022-12-31] MEDS: ACCU-CHEK COMFORT CURVE STRIP VI SCH ×5 (02:20→23:36)
[2022-12-31] MEDS: MEROPENEM 1GM IVPB 100 ML IV SCH ×2 (02:22→12:38)
[2022-12-31] MEDS: CARBIDOPA W LEVODOPA 25/100mg TABLET PO SCH ×3 (05:24→21:24)
[2022-12-31] MEDS: InsuLIN REG 1unit/0.01ml Soln (100units/ml) SC SCH ×5 (05:59→23:50)
[2022-12-31] MEDS: MUPIROCIN 2% OINT 15gm or 22gm FOR MRSA NARES EACHNOSTRI SCH ×2 (10:02→21:24)
[2022-12-31] MEDS: FUROSEMIDE 40 MG/4 ML VIAL IV SCH ×2 (16:41→18:00)
[2022-12-31] MEDS: VANCOMYCIN 1GM/250ML 250 ML IV SCH (18:00)
[2023-01-01] VITALS (7 sets, daily range): BP systolic 96–128; BP diastolic 52–67; PULSE 8–80; RESP 16–22; TEMP 97.6–98.6; O2SAT 98–100
[2023-01-01] MEDS: MEROPENEM 1GM IVPB 100 ML IV SCH ×2 (04:32→13:25)
[2023-01-01] MEDS: CARBIDOPA W LEVODOPA 25/100mg TABLET PO SCH ×3 (05:56→22:42)
[2023-01-01] MEDS: InsuLIN REG 1unit/0.01ml Soln (100units/ml) SC SCH ×4 (06:00→23:49)
[2023-01-01] MEDS: ACCU-CHEK COMFORT CURVE STRIP VI SCH ×4 (06:07→23:47)
[2023-01-01] MEDS: FUROSEMIDE 40 MG/4 ML VIAL IV SCH ×2 (06:07→18:07)
[2023-01-01] MEDS: MUPIROCIN 2% OINT 15gm or 22gm FOR MRSA NARES EACHNOSTRI SCH ×2 (08:35→22:49)
[2023-01-01] MEDS: VANCOMYCIN 1GM/250ML 250 ML IV SCH ×2 (18:00→18:08)
[2023-01-02] VITALS (10 sets, daily range): BP systolic 99–124; BP diastolic 46–72; PULSE 67–81; RESP 16–20; TEMP 97.7–98.9; O2SAT 94–100
[2023-01-02] MEDS: MEROPENEM 1GM IVPB 100 ML IV SCH ×2 (00:27→13:29)
[2023-01-02] MEDS: InsuLIN REG 1unit/0.01ml Soln (100units/ml) SC SCH ×3 (05:20→17:03)
[2023-01-02] MEDS: FUROSEMIDE 40 MG/4 ML VIAL IV SCH ×2 (05:23→17:18)
[2023-01-02] MEDS: CARBIDOPA W LEVODOPA 25/100mg TABLET PO SCH ×3 (05:26→21:35)
[2023-01-02] MEDS: ACCU-CHEK COMFORT CURVE STRIP VI SCH ×3 (05:30→17:03)
[2023-01-02] MEDS ORDERED: ALBUTEROL MEDNEB 2.5 mg/3ml NEB NEB PRN (06:00)
[2023-01-02] MEDS: MUPIROCIN 2% OINT 15gm or 22gm FOR MRSA NARES EACHNOSTRI SCH (09:42)
[2023-01-02] MEDS: VANCOMYCIN 1GM/250ML 250 ML IV SCH (17:17)
[2023-01-02] MEDS: ACETAMINOPHEN 325 MG TAB PO PRN (21:35)
[2023-01-03] MEDS: ACCU-CHEK COMFORT CURVE STRIP VI SCH ×4 (00:30→17:09)
[2023-01-03] MEDS: MEROPENEM 1GM IVPB 100 ML IV SCH ×3 (00:32→22:39)
[2023-01-03] MEDS: InsuLIN REG 1unit/0.01ml Soln (100units/ml) SC SCH ×4 (00:32→17:09)
[2023-01-03 05:00] VITALS: BP 103/64; PULSE 80; RESP 16; TEMP 97.7; O2SAT 100
[2023-01-03] MEDS: FUROSEMIDE 40 MG/4 ML VIAL IV SCH ×2 (05:57→17:33)
[2023-01-03] MEDS: CARBIDOPA W LEVODOPA 25/100mg TABLET PO SCH ×3 (05:57→22:00)
[2023-01-03 08:00] VITALS: BP 98/62; PULSE 80; PULSE 81; RESP 18; TEMP 97.4; O2SAT 100
[2023-01-03 12:00] VITALS: BP 119/56; PULSE 80; RESP 23; TEMP 97.9; O2SAT 93
[2023-01-03 12:20] LABS: Chloride 93 mmol/L (98-107); Potassium 3.6 mmol/L (3.5-5.1)
[2023-01-03 12:21] LABS: Anion Gap 5 (5-15); Calcium 8.4 mg/dL (8.5-10.1); Carbon Dioxide 34 mmol/L (20-30)
[2023-01-03 12:26] LABS: Blood Urea Nitrogen 16 mg/dL (9-23); Glucose 94 mg/dL (74-106)
[2023-01-03 12:47] LABS: Sodium 132 mmol/L (136-145)
[2023-01-03 16:00] VITALS: BP 99/58; PULSE 80; RESP 20; TEMP 98.5; O2SAT 100
[2023-01-03 20:00] VITALS: PULSE 84; RESP 18
[2023-01-03 22:00] VITALS: BP 106/65; PULSE 79; RESP 20; TEMP 98.5; O2SAT 94
[2023-01-04] VITALS (11 sets, daily range): BP systolic 94–127; BP diastolic 61–85; PULSE 74–82; RESP 17–20; TEMP 97.3–98; O2SAT 93–100
[2023-01-04 05:54] LABS: Alanine Aminotransferase 11 U/L (7-40); Albumin 2.9 g/dL (3.2-4.8); Alkaline Phosphatase 70 U/L (46-116); Anion Gap 3 (5-15); Aspartate Aminotransferase 24 U/L (13-40); BUN/Creatinine Ratio 16.7 (10.0-20.0); Bilirubin, Total 0.7 mg/dL (0.2-1.0); Blood Urea Nitrogen 16 mg/dL (9-23); Calcium 8.3 mg/dL (8.7-10.4); Carbon Dioxide 34 mmol/L (20-30); Chloride 94 mmol/L (98-107); Glucose 115 mg/dL (74-106); Potassium 3.9 mmol/L (3.5-5.1); Sodium 131 mmol/L (136-145); Total Protein 5.6 g/dL (5.7-8.2)
[2023-01-04] MEDS: InsuLIN REG 1unit/0.01ml Soln (100units/ml) SC SCH ×5 (06:00→23:10)
[2023-01-04 06:01] LABS: Basophils # (auto) 0 10 ^3/uL (0-0.2); Basophils % (auto) 0.9 % (0.0-2.0); Eosinophils # (auto) 0.2 10 ^3/uL (0-0.8); Eosinophils % (auto) 3.6 % (0.0-7.0); Hematocrit 36.7 % (41.0-53.0); Hemoglobin 11.6 g/dL (13.5-17.5); Lymphocytes # (auto) 1.2 10 ^3/uL (0.4-5.4); Lymphocytes % (auto) 21.8 % (10.0-50.0); Mean Corpuscular Hemoglobin 28.4 pg (28.0-32.0); Mean Corpuscular Hgb Conc. 31.7 g/dL (32.0-36.0); Mean Corpuscular Volume 89.6 fL (80.0-100.0); Monocytes # (auto) 0.5 10 ^3/uL (0-1.3); Monocytes % (auto) 9.6 % (0.0-12.0); Neutrophils # (auto) 3.5 10 ^3/uL (1.6-8.6); Neutrophils % (auto) 64.1 % (37.0-80.0); Nucleated Red Blood Cells % 0.1 %; Red Cell Distribution Width 19.2 % (11.8-14.3); White Blood Cell 5.5 10^3/uL (4.4-10.8)
[2023-01-04] MEDS: ACCU-CHEK COMFORT CURVE STRIP VI SCH ×5 (06:18→23:10)
[2023-01-04] MEDS: CARBIDOPA W LEVODOPA 25/100mg TABLET PO SCH ×3 (06:19→22:00)
[2023-01-04] MEDS ORDERED: FUROSEMIDE 20 MG/2 ML VIAL IV SCH ×2 (07:00)
[2023-01-04] MEDS: ACETAMINOPHEN 325 MG TAB PO PRN ×2 (08:16→14:57)
[2023-01-04] MEDS ORDERED: FUROSEMIDE 20 MG/2 ML VIAL IV ONE (09:00)
[2023-01-04] MEDS ORDERED: FUR20T PO (09:25)
[2023-01-04] MEDS ORDERED: BACDST PO (09:25)
[2023-01-04] MEDS: VANCOMYCIN 750mg/250ml 250 ML IV SCH (12:13)
[2023-01-04] MEDS: MEROPENEM 1GM IVPB 100 ML IV SCH (13:20)
[2023-01-04] MEDS: FUROSEMIDE 40 MG/4 ML VIAL IV SCH (17:46)
[2023-01-04] MEDS: ALBUTEROL MEDNEB 2.5 mg/3ml NEB NEB PRN (20:09)
[2023-01-04] MEDS ORDERED: KETOROLAC TROMETH 30 MG/ML 1ML VIAL IV ONE (22:00)
[2023-01-05] VITALS (9 sets, daily range): BP systolic 94–105; BP diastolic 46–63; PULSE 78–81; RESP 15–20; TEMP 97.3–98.1; O2SAT 94–100
[2023-01-05] MEDS: MEROPENEM 1GM IVPB 100 ML IV SCH ×2 (00:53→14:33)
[2023-01-05] MEDS: InsuLIN REG 1unit/0.01ml Soln (100units/ml) SC SCH ×4 (06:00→23:47)
[2023-01-05] MEDS: CARBIDOPA W LEVODOPA 25/100mg TABLET PO SCH ×3 (06:00→22:00)
[2023-01-05] MEDS: FUROSEMIDE 40 MG/4 ML VIAL IV SCH ×2 (06:06→18:11)
[2023-01-05] MEDS: ACCU-CHEK COMFORT CURVE STRIP VI SCH ×4 (06:13→23:47)
[2023-01-05] MEDS: VANCOMYCIN 750mg/250ml 250 ML IV SCH (12:45)
[2023-01-05] MEDS: ALBUTEROL MEDNEB 2.5 mg/3ml NEB NEB PRN (14:52)
[2023-01-06] MEDS: MEROPENEM 1GM IVPB 100 ML IV SCH ×2 (00:43→12:35)
[2023-01-06 05:00] VITALS: BP 100/54; PULSE 82; RESP 18; TEMP 97; O2SAT 99
[2023-01-06] MEDS: FUROSEMIDE 40 MG/4 ML VIAL IV SCH (05:51)
[2023-01-06] MEDS: CARBIDOPA W LEVODOPA 25/100mg TABLET PO SCH ×2 (05:52→16:11)
[2023-01-06] MEDS: InsuLIN REG 1unit/0.01ml Soln (100units/ml) SC SCH ×2 (05:52→12:00)
[2023-01-06] MEDS: ACCU-CHEK COMFORT CURVE STRIP VI SCH ×2 (05:52→12:15)
[2023-01-06 08:00] VITALS: PULSE 80; O2SAT 97
[2023-01-06 08:15] VITALS: BP 105/59; PULSE 61; RESP 24; TEMP 97.9; O2SAT 99
[2023-01-06 11:08] VITALS: O2SAT 96
[2023-01-06 11:09] VITALS: O2SAT 96
[2023-01-06 12:00] VITALS: BP 113/71; PULSE 103; RESP 26; TEMP 97.6; O2SAT 99
[2023-01-06] MEDS: VANCOMYCIN 750mg/250ml 250 ML IV SCH (12:35)
== END 2023-01-06 16:30 | disposition hospice, home (50) | DRG 70 ==
LOC: ER 12:20 → EDBD 12:20 → TELE 16:49 → TELE-EAST 16:49
PROVIDERS: ADMIT Internal Medicine Geriatric Medicine; ATTEND Internal Medicine Geriatric Medicine
DX: G93.41 Metabolic encephalopathy (principal); J96.00 Acute respiratory failure, unspecified whether with hypoxia or hypercapnia; N39.0 Urinary tract infection, site not specified; E87.1 Hypo-osmolality and hyponatremia; G20.A1 Parkinson's disease without dyskinesia, without mention of fluctuations; E78.2 Mixed hyperlipidemia; I11.0 Hypertensive heart disease with heart failure; R31.0 Gross hematuria; E11.9 Type 2 diabetes mellitus without complications; I25.10 Atherosclerotic heart disease of native coronary artery without angina pectoris; I50.9 Heart failure, unspecified; Z22.322 Carrier or suspected carrier of Methicillin resistant Staphylococcus aureus; Z51.5 Encounter for palliative care; Z79.82 Long term (current) use of aspirin; Z79.899 Other long term (current) drug therapy; Z86.14 Personal history of Methicillin resistant Staphylococcus aureus infection; Z88.0 Allergy status to penicillin; Z74.01 Bed confinement status
CPT/HCPCS: 36415; 71045; 73562; 80048; 80053; 80202; 81001; 82565; 82962; 83605; 83735; 85025; 85610; 87040; 87081; 87086; 93005; 93970; 94640; 96360; 97110; 97163; 97530; G0378; J1815; J2185